=== PATIENT | female | born 1995 | race Caucasian/White ===

== ENCOUNTER 2018-02-03 05:45 | Inpatient (IN) | payer OTHER ==
[2018-02-03] MEDS: CEFAZOLIN 2 GM/50 ML (PMX) 50 ML IVPB (05:00)
[2018-02-03] MEDS ORDERED: PROPOFOL 20 ML (07:39)
[2018-02-03] MEDS ORDERED: SUCCINYLCHOLINE CHLORIDE 100 MG/5 ML SYG IV (07:39)
[2018-02-03] MEDS ORDERED: LIDOCAINE 2% (SDV) 5 ML INJ (07:39)
[2018-02-03] MEDS ORDERED: MIDAZOLAM 1 MG/ML 2 ML INJ ×2 (07:39→09:18)
[2018-02-03] MEDS ORDERED: CEFAZOLIN 1 GM INJ (07:50)
[2018-02-03] MEDS ORDERED: DEXAMETHASONE 4 MG/ML 1 ML INJ (07:50)
[2018-02-03] MEDS ORDERED: ONDANSETRON 4 MG INJ (07:50)
[2018-02-03] MEDS ORDERED: FAMOTIDINE 20 MG INJ (07:51)
[2018-02-03] MEDS ORDERED: MAGNESIUM HYDROXIDE 30ML CUP PO (08:00)
[2018-02-03] MEDS: CEFAZOLIN 1 GM/50 ML (PMX) 50 ML IVPB (08:00)
[2018-02-03] MEDS ORDERED: BISACODYL 10 MG SUPP PR (08:00)
[2018-02-03] MEDS ORDERED: ACETAMINOPHEN 1000MG/100ML IV 100 ML (08:32)
[2018-02-03] MEDS ORDERED: SUGAMMADEX SODIUM 200 MG/2 ML VIAL IV ×2 (08:38→08:40)
[2018-02-03] MEDS ORDERED: KETOROLAC 30 MG INJ (08:39)
[2018-02-03] MEDS ORDERED: ROPIVACAINE 0.5 % 30 ML VIAL (08:41)
[2018-02-03] MEDS ORDERED: HYDROmorphONE 1 MG/ML SYG (09:08)
[2018-02-03] MEDS: HYDROmorphONE 1 MG/5 ML IV SYRINGE IV ×3 (09:10→09:48)
[2018-02-03] MEDS ORDERED: HYDROmorphONE 1 MG/5 ML IV SYRINGE IV ×2 (09:10→09:30)
[2018-02-03] MEDS: MIDAZOLAM 1 MG/ML 2 ML INJ IV ×2 (09:24→09:50)
[2018-02-03] MEDS ORDERED: PROCHLORPERAZINE 10 MG INJ IV (09:30)
[2018-02-03] MEDS ORDERED: DIPHENHYDRAMINE 50 MG INJ IV (09:30)
[2018-02-03] MEDS ORDERED: FENTAnyl 50 MCG/ML VIAL IV ×3 (09:30)
[2018-02-03] MEDS ORDERED: ONDANSETRON 4 MG INJ IV (09:30)
[2018-02-03] MEDS: MEPERIDINE 25 MG INJ IV (09:40)
[2018-02-03] MEDS: LACTATED RINGER'S 1,000 ML IV* (11:10)
[2018-02-03] MEDS: KETOROLAC 30 MG INJ IV (11:16)
[2018-02-03] MEDS: morphine 2 MG INJ IV ×3 (12:52→21:47)
[2018-02-03] MEDS ORDERED: METOCLOPRAMIDE 10 MG INJ IV (17:00)
[2018-02-03] MEDS: ONDANSETRON 4 MG INJ IV (17:24)
[2018-02-04] MEDS: morphine 2 MG INJ IV (05:44)
[2018-02-04 06:02] LABS: ADD MAN DIFF? NO
[2018-02-04 06:13] LABS: BASOPHILS % 0.3 % (0.0-2.0); EOSINOPHILS # 0.1 10^3/ul (0.0-0.5); EOSINOPHILS % 0.6 % (0.0-7.0); HEMATOCRIT 37.6 % (37.0-47.0); LYMPHOCYTES # 2.9 10^3/ul (0.8-2.9); LYMPHOCYTES % 24.3 % (15.0-51.0); MEAN CORPUSCULAR HEMOGLOBIN 26.3 pg (29.0-33.0); MEAN CORPUSCULAR HGB CONC 31.9 g/dl (32.0-37.0); MEAN CORPUSCULAR VOLUME 82.3 fl (82.0-101.0); MEAN PLATELET VOLUME 11.9 fl (7.4-10.4); MONOCYTES % 8.1 % (0.0-11.0); NEUTROPHILS % 66.1 % (39.0-77.0); PLATELET COUNT 266 10^3/UL (140-415); RED BLOOD COUNT 4.57 10^6/ul (4.20-5.40); RED CELL DISTRIBUTION WIDTH 14.1 % (11.5-14.5)
[2018-02-04] MEDS: KETOROLAC 30 MG INJ IV (09:47)
[2018-02-04] MEDS: MAGNESIUM CITRATE 300 ML BTL PO (09:52)
[2018-02-04] MEDS: HYDROCODONE/APAP (5/325) TAB PO (13:50)
== END 2018-02-04 16:15 | disposition home or self-care (01) | DRG 743 ==
LOC: REC 05:45 → PP2 11:45
PROVIDERS: Specialist
PROC: 0UB00ZZ Excision of Right Ovary, Open Approach (ICD-10-PCS; principal; 2018-02-03 07:30)
DX: N83.201 Unspecified ovarian cyst, right side (principal); E66.9 Obesity, unspecified; Z68.36 Body mass index [BMI] 36.0-36.9, adult
CPT/HCPCS: 85025; 87086; 88305